=== PATIENT | female | born 1965 | race Hispanic/Latino ===

== ENCOUNTER 2019-12-23 09:43 | Outpatient (CLI) | payer BC ==
--- NOTE | 2020-01-15 15:01 | MMO ---
Bilateral MAMMO Bilat Screen [facility]. CLINICAL HISTORY: Patient is 54 years old and is seen for screening. The patient has no family history of breast cancer. The patient has no personal history of cancer. VIEWS: The views performed were: bilateral craniocaudal with tomosynthesis and bilateral mediolateral oblique with tomosynthesis. FILMS COMPARED: The present examination has been compared to prior imaging studies performed at 02/22/2017. This study has been interpreted with the assistance of computer-aided detection. MAMMOGRAM FINDINGS: There are scattered fibroglandular densities. Right breast nodule no longer seen. There are no suspicious masses, suspicious calcifications, or new areas of architectural distortion. IMPRESSION: THERE IS NO MAMMOGRAPHIC EVIDENCE OF MALIGNANCY. A ROUTINE FOLLOW-UP MAMMOGRAM IN 1 YEAR IS RECOMMENDED. THE RESULTS OF THIS EXAM WERE SENT TO THE PATIENT. ACR BI-RADS Category 2 - Benign finding MAMMOGRAPHY NOTE: 1. A negative mammogram report should not delay a biopsy if a dominant of clinically suspicious mass is present. 2. Approximately 10% to 15% of breast cancers are not detected by mammography. 3. Adenosis and dense breasts may obscure an underlying neoplasm. Reported by: CARMEN RICHARD MD Electonically Signed: [id number]
== END 2019-12-23 09:44 | disposition home or self-care (01) ==
LOC: BICMAMMO 09:43
PROVIDERS: ATTEND Family Medicine
DX: Z12.31 Encounter for screening mammogram for malignant neoplasm of breast (principal)
CPT/HCPCS: 77063; 77067

== ENCOUNTER 2022-03-16 11:54 | Outpatient (CLI) | payer BC | END 2022-03-16 11:55 | disposition home or self-care (01) | LOC: RAD 11:54 | PROVIDERS: ATTEND Specialist | DX: M25.561 Pain in right knee (principal); M17.11 Unilateral primary osteoarthritis, right knee ==

== ENCOUNTER 2023-02-02 11:13 | Outpatient (CLI) | payer MEDICARE, BC | END 2023-02-02 11:14 | disposition home or self-care (01) | LOC: BICMAMMO 11:13 | PROVIDERS: ATTEND Specialist | DX: Z12.31 Encounter for screening mammogram for malignant neoplasm of breast (principal) | CPT/HCPCS: 77063; 77067 ==

== ENCOUNTER 2023-07-04 10:31 | Outpatient (CLI) | payer MEDICARE | END 2023-07-04 10:32 | disposition home or self-care (01) | LOC: BICRAD 10:31 | PROVIDERS: ATTEND Internal Medicine Rheumatology | DX: M13.0 Polyarthritis, unspecified (principal); R76.0 Raised antibody titer ==

== ENCOUNTER 2024-03-03 11:59 | Outpatient (CLI) | payer MEDICARE | END 2024-03-03 12:00 | disposition home or self-care (01) | LOC: BICRAD 11:59 | PROVIDERS: ATTEND Internal Medicine Rheumatology | DX: M25.562 Pain in left knee (principal); M17.12 Unilateral primary osteoarthritis, left knee ==

== ENCOUNTER 2024-03-20 14:01 | Outpatient (CLI) | payer MEDICARE | END 2024-03-20 14:02 | disposition home or self-care (01) | LOC: BICRAD 14:01 | PROVIDERS: ATTEND Internal Medicine Rheumatology | DX: M79.662 Pain in left lower leg (principal) ==

== ENCOUNTER 2025-01-27 10:45 | Outpatient (CLI) | payer MEDICARE | END 2025-01-27 10:46 | disposition home or self-care (01) | LOC: MRI 10:45 | PROVIDERS: ATTEND Family Medicine Sports Medicine | DX: G89.11 Acute pain due to trauma (principal) ==